=== PATIENT | male | born 1965 | race Caucasian/White ===

== ENCOUNTER → 2017-06-09 | Outpatient (CLI) | payer BC ==
[~2017-06-09] MED LIST: ALLDSR/24 PO; ASPEC81 PO; ATOR10TA88 PO; CQ10 PO; OMEG10007 PO
--- NOTE | 2017-06-09 16:08 | DIAGNOSTIC IMAGING REPORT ---
L ANKLE MIN 3 VIEWS ROUTINE CLINICAL HISTORY: 51 years-old Male presenting with LT ANKLE INJURY. TECHNIQUE: Frontal, mortise, and lateral views of the left ankle were obtained. COMPARISON: 07/25/2015. FINDINGS: Ankle mortise intact. No acute fracture or malalignment. Moderate soft tissue swelling over the lateral malleolus. No significant degenerative change. An ankle joint effusion may be present. IMPRESSION: No acute osseous injury of the left ankle. Electronically signed by: Malcolm Mendez M.D. 06/09/2017 4:06 PM Dictated Date/Time: 06/09/2017 4:05 PM
== END | disposition home or self-care (01) ==
LOC: C.RAD 13:37
PROVIDERS: ATTEND Nurse Practitioner Family
DX: S99.912A Unspecified injury of left ankle, initial encounter (principal); X58.XXXA Exposure to other specified factors, initial encounter